=== PATIENT | female | born 1955 | race Caucasian/White ===

== ENCOUNTER 2016-12-26 10:56 | Outpatient (CLI) | payer BC ==
[2016-01-19 17:28] VITALS: O2SAT 98
== END 2016-12-26 10:57 | disposition home or self-care (01) ==
LOC: CONVCARE 10:56
PROVIDERS: ATTEND Orthopaedic Surgery
DX: M25.572 Pain in left ankle and joints of left foot (principal)
CPT/HCPCS: 73610